=== PATIENT | male | born 1995 | race Caucasian/White ===

== ENCOUNTER 2017-12-07 16:10 | Emergency (ER) | payer MEDICAID ==
[~2017-12-07] VITALS: Ht 172.7 cm; Wt 55.2 kg
[2017-12-07 17:53] VITALS: BP 117/83
== END 2017-12-07 17:55 | disposition home or self-care (01) ==
LOC: ED 17:05
DX: R07.81 Pleurodynia (principal); M72.2 Plantar fascial fibromatosis; B35.3 Tinea pedis; R07.89 Other chest pain; F17.200 Nicotine dependence, unspecified, uncomplicated
CPT/HCPCS: 71046; 99284

== ENCOUNTER 2017-12-17 22:22 | Emergency (ER) | payer MEDICAID ==
[~2017-12-17] VITALS: Ht 170.2 cm; Wt 54.6 kg
[2017-12-17 22:25] VITALS: BP 105/67
[2017-12-17] MEDS ORDERED: KETOROLAC 30 MG/1 ML ONE (22:59)
[2017-12-17] MEDS ORDERED: KETOROLAC 30 MG/1 ML IM ONE (23:00)
== END 2017-12-17 23:26 | disposition home or self-care (01) ==
LOC: ED 22:36
DX: K04.7 Periapical abscess without sinus (principal); K02.9 Dental caries, unspecified
CPT/HCPCS: 96372; 99283; J1885

== ENCOUNTER 2017-12-31 01:32 | Emergency (ER) | payer MEDICAID ==
[~2017-12-31] VITALS: Ht 172.7 cm; Wt 58.2 kg
[2017-12-31 01:35] VITALS: BP 120/54
[2017-12-31] MEDS ORDERED: DIPH,PERTUSS(ACELL),TET VAC/PF 0.5 ML IM-VACC ONE ×2 (02:00→02:29)
== END 2017-12-31 02:43 | disposition home or self-care (01) ==
LOC: ED 02:35
DX: S60.222A Contusion of left hand, initial encounter (principal); S20.311A Abrasion of right front wall of thorax, initial encounter; S40.811A Abrasion of right upper arm, initial encounter; F17.200 Nicotine dependence, unspecified, uncomplicated; V87.8XXA Person injured in other specified noncollision transport accidents involving motor vehicle (traffic), initial encounter; Y93.89 Activity, other specified; Y92.410 Unspecified street and highway as the place of occurrence of the external cause; Y99.8 Other external cause status
CPT/HCPCS: 90471; 90715

== ENCOUNTER 2018-01-26 22:31 | Emergency (ER) | payer MEDICAID ==
[~2018-01-26] VITALS: Ht 170.2 cm; Wt 60.0 kg
[2018-01-26 22:33] VITALS: BP 129/90
== END 2018-01-26 23:07 | disposition home or self-care (01) ==
LOC: ED 22:58
DX: K08.89 Other specified disorders of teeth and supporting structures (principal); F17.210 Nicotine dependence, cigarettes, uncomplicated
CPT/HCPCS: 99283

== ENCOUNTER 2018-01-28 23:49 | Emergency (ER) | payer MEDICAID ==
[~2018-01-28] VITALS: Ht 170.2 cm; Wt 58.6 kg
[2018-01-28 23:50] VITALS: BP 133/89
[2018-01-29] MEDS ORDERED: HYDROcodone/APAP 5/325 TABLET PO STA (00:10)
[2018-01-29] MEDS ORDERED: LIDOCAINE 1%-EPI 1:100K, 30ML ONE (00:17)
[2018-01-29] MEDS ORDERED: HYDROcodone/APAP 5/325 TABLET ONE (00:28)
[2018-01-29] MEDS ORDERED: LIDOCAINE 1%-EPI 1:100K, 20ML SQ ONE (00:30)
== END 2018-01-29 02:30 | disposition home or self-care (01) ==
LOC: ED 01-29 00:03
DX: K04.7 Periapical abscess without sinus (principal); F17.200 Nicotine dependence, unspecified, uncomplicated
CPT/HCPCS: 41800; 99284

== ENCOUNTER 2018-05-21 14:29 | Emergency (ER) | payer MEDICAID ==
[~2018-05-21] VITALS: Ht 172.7 cm; Wt 61.1 kg
--- NOTE | 2018-05-21 15:49 | NUR ---
Karen CHU, at bedside to evaluate pt.
[2018-05-21 17:10] VITALS: BP 111/66
--- NOTE | 2018-05-21 17:11 | NUR ---
Patient/Caregiver given discharge instructions and they have confirmed that they understand the instructions. Patient ambulatory with steady gait.
== END 2018-05-21 17:12 | disposition home or self-care (01) ==
LOC: ED 16:28
DX: S06.0X9A Concussion with loss of consciousness of unspecified duration, initial encounter (principal); F10.129 Alcohol abuse with intoxication, unspecified; F17.210 Nicotine dependence, cigarettes, uncomplicated; M79.652 Pain in left thigh; R51 Headache; Y04.8XXA Assault by other bodily force, initial encounter; Y93.89 Activity, other specified; Y92.410 Unspecified street and highway as the place of occurrence of the external cause; Y99.8 Other external cause status
CPT/HCPCS: 70450; 99284

== ENCOUNTER 2018-06-20 01:21 | Emergency (ER) | payer MEDICAID ==
[~2018-06-20] VITALS: Ht 172.7 cm; Wt 59.4 kg
[2018-06-20 01:29] VITALS: BP 111/76
[2018-06-20] MEDS ORDERED: ONDANSETRON ODT 4 MG ONE (01:48)
[2018-06-20] MEDS ORDERED: MAALOX/HYOSCYAMINE/LIDOCAINE 45 ML BTL ONE (01:48)
[2018-06-20] MEDS ORDERED: MAALOX/HYOSCYAMINE/LIDOCAINE 45 ML BTL PO ONE (02:00)
[2018-06-20] MEDS ORDERED: ONDANSETRON ODT 4 MG PO ONE (02:00)
== END 2018-06-20 02:14 | disposition home or self-care (01) ==
LOC: ED 01:40
DX: K29.20 Alcoholic gastritis without bleeding (principal); F10.120 Alcohol abuse with intoxication, uncomplicated; F17.200 Nicotine dependence, unspecified, uncomplicated
CPT/HCPCS: 99281

== ENCOUNTER 2018-07-05 22:12 | Emergency (ER) | payer MEDICAID ==
--- NOTE | 2018-07-05 22:40 | NUR ---
pt called to room from lobby
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
--- NOTE | 2018-07-05 23:20 | NUR ---
PT REPORTS NO FURTHER INCREASE IN PAIN. PT HAS CTA ON ALL LUNG MORA.
[2018-07-06 00:48] VITALS: BP 118/76
== END 2018-07-06 00:58 | disposition home or self-care (01) ==
LOC: ED 23:59
DX: R07.89 Other chest pain (principal); Y08.89XA Assault by other specified means, initial encounter; Y93.89 Activity, other specified; Y99.8 Other external cause status; Y92.410 Unspecified street and highway as the place of occurrence of the external cause
CPT/HCPCS: 71046; 93005; 99283

== ENCOUNTER 2018-09-08 14:53 | Emergency (ER) | payer MEDICAID ==
[~2018-09-08] VITALS: Ht 172.7 cm; Wt 55.5 kg
[2018-09-08 15:06] VITALS: BP 113/74
[2018-09-08] MEDS ORDERED: DIPHENHYDRAMINE 25 MG CAPSULE ONE (15:29)
[2018-09-08] MEDS ORDERED: FAMOTIDINE 20 MG TABLET ONE (15:29)
[2018-09-08] MEDS ORDERED: DIPHENHYDRAMINE 25 MG CAPSULE PO ONE (15:30)
[2018-09-08] MEDS ORDERED: FAMOTIDINE 20 MG TABLET PO ONE (15:30)
== END 2018-09-08 16:09 | disposition home or self-care (01) ==
LOC: ED 15:40
DX: T78.40XA Allergy, unspecified, initial encounter (principal); R21 Rash and other nonspecific skin eruption; F17.200 Nicotine dependence, unspecified, uncomplicated
CPT/HCPCS: 99284; J7512; Q0163

== ENCOUNTER 2018-10-07 21:33 | Emergency (ER) | payer MEDICAID ==
[~2018-10-07] VITALS: Ht 170.2 cm; Wt 60.0 kg
[2018-10-07 22:31] VITALS: BP 119/74
--- NOTE | 2018-10-07 22:32 | NUR ---
UPON GIVING PT DC INSTRUCTIONS PT REQUESTING TO SLEEP UNTIL HIS GF GETS OFF WORK. PT INFORMED HE IS BEING DISCHARGED BUT IS WELCOME TO WAIT IN THE LOBBY UNTIL SHE ARRIVES. PT AGREEABLE TO THIS. PT DENIE FURTHER NEEDS. PT ASSISTED WITH GETTING DRESSED.
== END 2018-10-07 22:45 | disposition home or self-care (01) ==
LOC: ED 22:20
DX: S43.101A Unspecified dislocation of right acromioclavicular joint, initial encounter (principal); M25.511 Pain in right shoulder; V00.131A Fall from skateboard, initial encounter; Y93.51 Activity, roller skating (inline) and skateboarding; Y92.830 Public park as the place of occurrence of the external cause; Y99.8 Other external cause status
CPT/HCPCS: 29240; 99283

== ENCOUNTER 2018-10-14 13:59 | Emergency (ER) | payer MEDICAID ==
[~2018-10-14] VITALS: Ht 172.7 cm; Wt 56.7 kg
[2018-10-14 14:17] VITALS: BP 117/70
== END 2018-10-14 14:58 | disposition home or self-care (01) ==
LOC: ED 14:42
DX: S43.101A Unspecified dislocation of right acromioclavicular joint, initial encounter (principal); V00.131A Fall from skateboard, initial encounter; Y93.51 Activity, roller skating (inline) and skateboarding; Y92.410 Unspecified street and highway as the place of occurrence of the external cause; Y99.8 Other external cause status
CPT/HCPCS: 99282

== ENCOUNTER 2019-05-22 03:45 | Emergency (ER) | payer MEDICAID ==
[~2019-05-22] VITALS: Ht 170.2 cm; Wt 65.0 kg
[2019-05-22 03:49] VITALS: BP 107/66
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
--- NOTE | 2019-05-22 05:06 | NUR ---
PT ASLEEP IN [facility] AT THIS TIME; NADN. CALL LIGHT WITHIN REACH. PT OXYGEN SATURATION 97% ON ROOM AIR.
--- NOTE | 2019-05-22 06:56 | NUR ---
REPORT OF PT TO SULMA PRYOR AND ALL QUESTIONS ANSWERED.
--- NOTE | 2019-05-22 07:30 | NUR ---
ASSUMED CARE AFTER RECEIVING REPORT FROM DUSTY OZUNA. PT AWAKE AND ALERT. AMBULATED TO BATHROOM, STEADY GAIT. PROVIDED DISCHARGE AND AMBULATED TO DISCHARGE WINDOW. PT HOMELESS AND VOUCHER GIVEN TO AREA THAT HE STAYS
== END 2019-05-22 07:33 | disposition home or self-care (01) ==
LOC: MERGE 07:27 → ED 07:27
DX: F10.120 Alcohol abuse with intoxication, uncomplicated (principal); Y90.9 Presence of alcohol in blood, level not specified
CPT/HCPCS: 99283

== ENCOUNTER 2019-06-21 19:17 | Emergency (ER) | payer MEDICAID ==
[~2019-06-21] VITALS: Ht 172.7 cm; Wt 60.3 kg
--- NOTE | 2019-06-21 19:42 | NUR ---
NO ANSWER WHEN THIS PT WAS CALLED FOR TRIAGE.
[2019-06-21 19:47] VITALS: BP 121/75
--- NOTE | 2019-06-21 20:54 | NUR ---
PT HERE FOR LOWER RIGHT DENTAL PAIN. PT GIVEN ABX AND PAIN CONTROL MED. PT TO SCHEDUEL FOLLOW UP WITH DENTIST. Patient/Caregiver given discharge instructions and they have confirmed that they understand the instructions. Patient ambulatory with steady gait.
== END 2019-06-21 20:57 | disposition home or self-care (01) ==
LOC: ED 20:40
DX: K08.89 Other specified disorders of teeth and supporting structures (principal)
CPT/HCPCS: 99283

== ENCOUNTER 2019-06-22 07:42 | Emergency (ER) | payer MEDICAID ==
[~2019-06-22] VITALS: Ht 172.7 cm; Wt 58.8 kg
[2019-06-22 07:44] VITALS: BP 124/88
== END 2019-06-22 08:08 | disposition home or self-care (01) ==
LOC: ED 08:03
DX: K02.9 Dental caries, unspecified (principal); F17.210 Nicotine dependence, cigarettes, uncomplicated
CPT/HCPCS: 99283

== ENCOUNTER 2019-11-14 23:02 | Emergency (ER) | payer MEDICAID ==
[~2019-11-14] VITALS: Ht 170.2 cm; Wt 57.0 kg
[2019-11-14] MEDS ORDERED: ONDANSETRON 2MG/ML, 2ML ONE (23:46)
[2019-11-14] MEDS ORDERED: ACETAMINOPHEN 500 MG TABLET ONE (23:47)
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
[2019-11-15] MEDS ORDERED: SODIUM CHLORIDE 0.9% 1,000ML IVBOLUS ONE
[2019-11-15] MEDS ORDERED: ACETAMINOPHEN 500 MG TABLET PO ONE
[2019-11-15] MEDS ORDERED: ONDANSETRON 2MG/ML, 2ML IVPush ONE
[2019-11-15 00:01] LABS: BASOPHILS # (AUTO) 0.01 x10^3/uL (0-0.1); BASOPHILS % (AUTO) 0 % (0-1); EOSINOPHILS % (AUTO) 1 % (1-7); LYMPHOCYTES # (AUTO) 1.92 x10^3/uL (1-3.4); LYMPHOCYTES % (AUTO) 27 % (22-44); MD NO; MEAN CORPUSCULAR HEMOGLOBIN 30.7 pg (27.5-34.5); MEAN CORPUSCULAR HGB CONC 33.9 g/dL (33.2-36.2); MEAN CORPUSCULAR VOLUME 90.4 fL (81-97); MEAN PLATELET VOLUME 7.1 fL (7.4-10.4); MONOCYTES # (AUTO) 0.42 x10^3/uL (0.2-0.8); MONOCYTES % (AUTO) 6 % (2-9); NEUTROPHILS # (AUTO) 4.68 x10^3/uL (1.8-6.8); NEUTROPHILS % (AUTO) 66 % (42-75); PLATELET COUNT 313 x10^3/uL (130-400); RED CELL DISTRIBUTION WIDTH 12.3 % (9.4-14.8)
[2019-11-15 00:13] LABS: ALANINE AMINOTRANSFERASE 18 U/L (12-78); ALBUMIN 3.6 g/dL (3.4-5.0); ANION GAP 5 mmol/L (5-15); CALCIUM 8.6 mg/dL (8.5-10.1); CHLORIDE 108 mmol/L (98-107); CREATININE 1.23 mg/dL (0.7-1.3)
[2019-11-15 00:15] LABS: ALKALINE PHOSPHATASE 71 U/L (45-117); BILIRUBIN,TOTAL 0.6 mg/dL (0.2-1.0); TOTAL PROTEIN 6.3 g/dL (6.4-8.2)
--- NOTE | 2019-11-15 00:25 | NUR ---
PT RESTING ON GURNEY, GIVEN WARM BLANKETS FOR COMFORT, NAD, VSS, WCTM. WAITING FOR TEST REUSLTS.
--- NOTE | 2019-11-15 00:51 | NUR ---
BREAK RN FOR PRIMARY LIANA. RECEIVED BEDSIDE REPORT. SB ON MONITOR, RATE 50-60, BP HYPOTENSIVE, DR. STEPHENS AWARE, NO NEW ORDERS RECEIVED. WARM BLANKET PROVIDED FOR COMFORT. DENIES ANY PAIN AND NEED TO USE RESTROOM "MY INSIDES FEEL BETTER." CALL LIGHT IN REACH. FALL PRECAUTIONS IN PLACE
--- NOTE | 2019-11-15 01:23 | NUR ---
BEDSIDE REPORT AND TRANSFER OF CARE BACK TO PRIMARY RN LIANA AT THIS TIME
--- NOTE | 2019-11-15 02:30 | NUR ---
LATE ENTRY D/T PT CARE: PT ROAD TESTED BY RN, PT HAS SMOOTH AND STEADY GAIT. ANABELL GRIDER. REUBEN.
--- NOTE | 2019-11-15 03:03 | NUR ---
PatienT given discharge instructions and they have confirmed that they understand the instructions. Patient ambulatory with steady gait. DENIES ADDITIONAL NEEDS OR QUESTIONS. VSS. NAD. ALL BELONGINGS WITH PT UPON DISCHARGE.
[2019-11-15 03:04] VITALS: BP 92/53
== END 2019-11-15 03:13 | disposition home or self-care (01) ==
LOC: ED 11-15 03:10
DX: R10.84 Generalized abdominal pain (principal); F10.10 Alcohol abuse, uncomplicated; F15.10 Other stimulant abuse, uncomplicated; F11.10 Opioid abuse, uncomplicated; R19.7 Diarrhea, unspecified; R00.1 Bradycardia, unspecified; R11.0 Nausea; I45.10 Unspecified right bundle-branch block; F17.210 Nicotine dependence, cigarettes, uncomplicated; Y90.0 Blood alcohol level of less than 20 mg/100 ml
CPT/HCPCS: 36415; 71045; 80053; 83690; 85025; 93005; 96361; 96374; 99285; 99406; J2405; J7030

== ENCOUNTER 2019-12-15 20:48 | Emergency (ER) | payer MEDICAID ==
[~2019-12-15] VITALS: Ht 167.6 cm; Wt 54.7 kg
[2019-12-15 22:39] VITALS: BP 109/84
--- NOTE | 2019-12-15 22:42 | NUR ---
VITALS RECHECKED, PT AWAITING ROOM AVAILABILITY
--- NOTE | 2019-12-15 22:44 | NUR ---
NO ANSWER WHEN CALLED FOR ROOM
--- NOTE | 2019-12-15 23:06 | NUR ---
AMBULATORY TO ROOM
--- NOTE | 2019-12-15 23:26 | NUR ---
PT GIVEN CLEAN SOCKS AT THIS TIME, CAB VOUCHER IF HE WOULD LIKE, COMM[employer]ITY [employer] SHEET
== END 2019-12-15 23:36 | disposition home or self-care (01) ==
LOC: ED 23:30
DX: S86.912A Strain of unspecified muscle(s) and tendon(s) at lower leg level, left leg, initial encounter (principal); B35.3 Tinea pedis; F17.210 Nicotine dependence, cigarettes, uncomplicated; X58.XXXA Exposure to other specified factors, initial encounter; Y93.89 Activity, other specified; Y92.89 Other specified places as the place of occurrence of the external cause; Y99.8 Other external cause status
CPT/HCPCS: 99406

== ENCOUNTER 2019-12-28 00:42 | Emergency (ER) | payer MEDICAID ==
[~2019-12-28] VITALS: Ht 175.3 cm; Wt 54.0 kg
[2019-12-28 00:44] VITALS: BP 132/81
[2019-12-28 01:11] LABS: BASOPHILS % (AUTO) 0 % (0-1); EOSINOPHILS % (AUTO) 1 % (1-7); LYMPHOCYTES % (AUTO) 23 % (22-44); MEAN CORPUSCULAR HEMOGLOBIN 30.7 pg (27.5-34.5); MEAN CORPUSCULAR HGB CONC 34.9 g/dL (33.2-36.2); MEAN PLATELET VOLUME 7.5 fL (7.4-10.4); MONOCYTES % (AUTO) 6 % (2-9); NEUTROPHILS % (AUTO) 71 % (42-75); PLATELET COUNT 426 x10^3/uL (130-400); RED BLOOD COUNT 5.84 x10^6/uL (4.38-5.82); RED CELL DISTRIBUTION WIDTH 12.9 % (9.4-14.8)
[2019-12-28 01:17] LABS: ALANINE AMINOTRANSFERASE 25 U/L (12-78); ALBUMIN 4.4 g/dL (3.4-5.0); ANION GAP 6 mmol/L (5-15); CALCIUM 9.6 mg/dL (8.5-10.1); CHLORIDE 101 mmol/L (98-107); MD NO
[2019-12-28 01:18] LABS: SALICYLATE LEVEL < 1.7 mg/dL (2.8-20.0)
[2019-12-28 01:21] LABS: ALKALINE PHOSPHATASE 94 U/L (45-117); BILIRUBIN,TOTAL 0.5 mg/dL (0.2-1.0)
--- NOTE | 2019-12-28 03:10 | NUR ---
24 year old male to ED for psychiatric evaluation. When asked what brings him in, he states "just trying to relax and slowly." When asked how he's feeling, he points at his head and says "snakes." He denies suicidal ideation or homicidal ideations.
--- NOTE | 2019-12-28 03:56 | NUR ---
Patient given discharge paperwork. He stated "Im not leaving." He immediately closed his eyes and would not reply to further questions. Hospital security at bedside to escort the patient out of ED.
== END 2019-12-28 04:00 | disposition home or self-care (01) ==
LOC: ED 03:30
DX: F15.90 Other stimulant use, unspecified, uncomplicated (principal); F17.200 Nicotine dependence, unspecified, uncomplicated
CPT/HCPCS: 36415; 80053; 80307; 83690; 85025; 99283

== ENCOUNTER 2019-12-29 21:23 | Emergency (ER) | payer MEDICAID ==
--- NOTE | 2019-12-29 21:26 | NUR ---
NOT IN LOBBY FOR TRIAGE
--- NOTE | 2019-12-29 21:39 | NUR ---
PT NOT IN LOBBY FOR TRIAGE AT THIS TIME
== END 2019-12-29 21:46 | disposition left against medical advice (07) ==
LOC: ED 21:33
DX: Z53.21 Procedure and treatment not carried out due to patient leaving prior to being seen by health care provider (principal)

== ENCOUNTER 2019-12-29 23:06 | Emergency (ER) | payer MEDICAID ==
[~2019-12-29] VITALS: Ht 175.3 cm; Wt 55.0 kg
[2019-12-29 23:16] VITALS: BP 123/85
--- NOTE | 2019-12-29 23:52 | NUR ---
Patient/Caregiver given discharge instructions and they have confirmed that they understand the instructions. Patient ambulatory with steady gait.
== END 2019-12-29 23:53 | disposition home or self-care (01) ==
LOC: ED 23:36
DX: F15.159 Other stimulant abuse with stimulant-induced psychotic disorder, unspecified (principal)
CPT/HCPCS: 99281

== ENCOUNTER 2020-01-17 22:37 | Emergency (ER) | payer MEDICAID ==
[~2020-01-17] VITALS: Ht 175.3 cm; Wt 63.0 kg
--- NOTE | 2020-01-18 00:05 | NUR ---
A&o x4, answering questions appropriately. Speaking in clear, full sentences. States atraumatic, nonradiating mid umbilicus pain x "a few days" with increased frequency of small, loose stools. Pt also states he is lactose intolerant and has been drinking milk frequently d/t limited options at rehab facility for meth. Pt states he has not used meth x1 week. Admits to intermittent marijuana usage, last use today. Abd soft, flat, nondistended. Denies fever/chills.
[2020-01-18 01:42] VITALS: BP 101/60
== END 2020-01-18 01:44 | disposition home or self-care (01) ==
LOC: ED 23:13
DX: F20.89 Other schizophrenia (principal); F10.20 Alcohol dependence, uncomplicated; F12.20 Cannabis dependence, uncomplicated; Y90.0 Blood alcohol level of less than 20 mg/100 ml; Z72.9 Problem related to lifestyle, unspecified
CPT/HCPCS: 99281

== ENCOUNTER 2020-01-18 19:26 | Emergency (ER) | payer MEDICAID ==
[~2020-01-18] VITALS: Ht 172.7 cm; Wt 64.4 kg
--- NOTE | 2020-01-18 19:48 | NUR ---
assessment made. chart up for MD to see.
--- NOTE | 2020-01-18 19:54 | NUR ---
ERP at bedside.
--- NOTE | 2020-01-18 20:05 | NUR ---
blood drawn by calibration laboratory technician.
[2020-01-18 20:27] LABS: ALANINE AMINOTRANSFERASE 225 U/L (12-78); ALBUMIN 4.1 g/dL (3.4-5.0); ANION GAP 5 mmol/L (5-15); CALCIUM 8.8 mg/dL (8.5-10.1); CHLORIDE 104 mmol/L (98-107); CREATININE 1.09 mg/dL (0.7-1.3)
[2020-01-18 20:32] LABS: BASOPHILS % (AUTO) 1 % (0-1); EOSINOPHILS % (AUTO) 1 % (1-7); LYMPHOCYTES % (AUTO) 20 % (22-44); MEAN CORPUSCULAR HEMOGLOBIN 30.6 pg (27.5-34.5); MEAN CORPUSCULAR HGB CONC 33.9 g/dL (33.2-36.2); MEAN PLATELET VOLUME 7.9 fL (7.4-10.4); MONOCYTES % (AUTO) 8 % (2-9); NEUTROPHILS % (AUTO) 71 % (42-75); PLATELET COUNT 302 x10^3/uL (130-400); RED BLOOD COUNT 5.11 x10^6/uL (4.38-5.82); RED CELL DISTRIBUTION WIDTH 13.3 % (9.4-14.8)
[2020-01-18 20:33] LABS: MD NO
[2020-01-18 20:34] LABS: SALICYLATE LEVEL < 1.7 mg/dL (2.8-20.0)
[2020-01-18 20:37] LABS: ALKALINE PHOSPHATASE 96 U/L (45-117); BILIRUBIN,TOTAL 0.4 mg/dL (0.2-1.0); TOTAL PROTEIN 7.7 g/dL (6.4-8.2)
[2020-01-18 21:24] VITALS: BP 108/64
--- NOTE | 2020-01-18 21:24 | NUR ---
PT TO ED, STATES "I WANNA HURT MYSELF, I CUT MYSELF A FEW WEEKS AGO, SEE?" PT HAS NO RECENT INJURY OR SELF HARM. STATES "LIFE HAS BEEN HARD LATELY". PT RESTING ON [facility] SENT TO LAB. TELEPSYCH COMPLETED, AWAITING PROVIDER REPORT.
[2020-01-18 21:44] LABS: AMPHETAMINE SCREEN, URINE Negative (Negative); BARBITURATE SCREEN, URINE Negative (Negative); BENZODIAZEPINE SCREEN, URINE Negative (Negative); CANNABINOID SCREEN, URINE Positive (Negative); COCAINE SCREEN, URINE Negative (Negative); METHADONE SCREEN, URINE Negative (Negative); OPIATE SCREEN, URINE Negative (Negative)
[2020-01-18 21:45] LABS: MICROSCOPIC NOT IND
--- NOTE | 2020-01-18 22:30 | NUR ---
BELONGINGS SECURED IN LOCKER IN 2OF2 BAGS. PT OFFERED FOOD AND WATER, DENIES NEEDS AT THIS TIME. ROOM SECURED, SITTER IN HALLWAY WITHIN LINE OF SIGHT.
--- NOTE | 2020-01-18 22:43 | NUR ---
PT RESTING ON MANUEL PATRICIO IN HALLWAY WITHIN LINE OF SIGHT, ROOM SECURED.
--- NOTE | 2020-01-18 22:46 | NUR ---
Throughput: Packet faxed to [facility], [facility], [facility].
--- NOTE | 2020-01-19 00:20 | NUR ---
REPORT CALLED TO SULMA ARROYO AT [facility].
--- NOTE | 2020-01-19 00:31 | NUR ---
PT RESTING ON GURNEY WITH EYES CLOSED, RESPIRATIONS EVEN AND NONLABORED. SITTER IN HALLWAY WITHIN LINE OF SIGHT, ROOM SECURED.
== END 2020-01-19 01:22 | disposition home or self-care (01) ==
LOC: ED 19:53
DX: F33.9 Major depressive disorder, recurrent, unspecified (principal); F29 Unspecified psychosis not due to a substance or known physiological condition; R45.851 Suicidal ideations
CPT/HCPCS: 36415; 80053; 80307; 81003; 84443; 85025; 99283

== ENCOUNTER 2020-01-25 18:12 | Emergency (ER) | payer MEDICAID ==
[~2020-01-25] VITALS: Ht 172.7 cm; Wt 64.0 kg
[2020-01-25 18:23] VITALS: BP 109/73
--- NOTE | 2020-01-25 22:00 | NUR ---
PT NIL X1
== END 2020-01-25 23:40 | disposition home or self-care (01) ==
LOC: ED 23:00
DX: F41.1 Generalized anxiety disorder (principal); Z76.0 Encounter for issue of repeat prescription
CPT/HCPCS: 99281

== ENCOUNTER 2020-01-29 18:29 | Emergency (ER) | payer MEDICAID ==
[~2020-01-29] VITALS: Ht 172.7 cm; Wt 64.7 kg
[2020-01-29 19:09] VITALS: BP 99/71
== END 2020-01-29 19:41 | disposition home or self-care (01) ==
LOC: ED 19:30
DX: F31.9 Bipolar disorder, unspecified (principal); F41.1 Generalized anxiety disorder; Z59.0 Homelessness; R94.31 Abnormal electrocardiogram [ECG] [EKG]
CPT/HCPCS: 93005; 99284

== ENCOUNTER 2020-02-13 19:15 | Emergency (ER) | payer MEDICAID ==
[~2020-02-13] VITALS: Ht 175.3 cm; Wt 62.5 kg
[2020-02-13 19:17] VITALS: BP 112/69
--- NOTE | 2020-02-13 19:55 | NUR ---
DC EDUCATION PROVIDED, PT DEMONSTRATES UNDERSTANDING. PT AMBULATED STEADILY TO DC WITH RN
== END 2020-02-13 19:59 | disposition home or self-care (01) ==
LOC: ED 19:57
DX: B86 Scabies (principal); F17.200 Nicotine dependence, unspecified, uncomplicated
CPT/HCPCS: 99283

== ENCOUNTER 2020-02-23 16:02 | Emergency (ER) | payer MEDICAID ==
[~2020-02-23] VITALS: Ht 175.3 cm; Wt 64.5 kg
[2020-02-23 16:11] VITALS: BP 111/77
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
--- NOTE | 2020-02-23 20:01 | NUR ---
Patient given discharge instructions and they have confirmed that they understand the instructions. Patient stable and ambulatory with steady gait from ED.
== END 2020-02-23 20:02 | disposition home or self-care (01) ==
LOC: ED 19:45
DX: U07.1 COVID-19 (principal); J00 Acute nasopharyngitis [common cold]; R09.81 Nasal congestion; F32.9 Major depressive disorder, single episode, unspecified; R44.1 Visual hallucinations
CPT/HCPCS: 87635; 99283

== ENCOUNTER 2020-10-11 23:32 | Emergency (ER) | payer MEDICAID ==
[~2020-10-11] VITALS: Ht 170.2 cm; Wt 65.0 kg
[2020-10-11 23:34] VITALS: BP 126/66
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
[2020-10-11] MEDS ORDERED: DIPH,PERTUSS(ACELL),TET VAC/PF 0.5 ML IM-VACC ONE (23:59)
[2020-10-11] MEDS ORDERED: IBUPROFEN 600 MG TABLET ONE (23:59)
[2020-10-12] MEDS ORDERED: DIPH,PERTUSS(ACELL),TET VAC/PF 0.5 ML IM-VACC ONE
[2020-10-12] MEDS ORDERED: IBUPROFEN 600 MG TABLET PO ONE
--- NOTE | 2020-10-12 00:26 | NUR ---
Break RN: medicated patient per mar. Awaiting CT results.
== END 2020-10-12 00:49 | disposition home or self-care (01) ==
LOC: ED 23:50
DX: S00.11XA Contusion of right eyelid and periocular area, initial encounter (principal); F17.210 Nicotine dependence, cigarettes, uncomplicated; Y04.0XXA Assault by unarmed brawl or fight, initial encounter; Y93.89 Activity, other specified; Y92.410 Unspecified street and highway as the place of occurrence of the external cause; Y99.8 Other external cause status
CPT/HCPCS: 70450; 70486; 90471; 90715; 99285; 99406

== ENCOUNTER 2020-10-27 17:20 | Emergency (ER) | payer MEDICAID ==
--- NOTE | 2020-10-27 18:25 | NUR ---
PATIENT NOT IN LOBBY WHEN CALLED.
--- NOTE | 2020-10-27 18:40 | NUR ---
PATIENT NOT IN LOBBY WHEN CALLED X2.
--- NOTE | 2020-10-27 18:55 | NUR ---
PATIENT NOT IN LOBBBY WHEN CALLED X3.
== END 2020-10-27 19:14 | disposition left against medical advice (07) ==
LOC: ED 18:00
DX: J02.9 Acute pharyngitis, unspecified (principal); Z53.21 Procedure and treatment not carried out due to patient leaving prior to being seen by health care provider

== ENCOUNTER 2020-11-01 13:41 | Emergency (ER) | payer MEDICAID ==
[~2020-11-01] VITALS: Ht 175.3 cm; Wt 61.4 kg
--- NOTE | 2020-11-01 15:01 | NUR ---
LICENSED REAL ESTATE BROKER: PT TO ROOM FROM [facility]
--- NOTE | 2020-11-01 15:11 | NUR ---
CC OF "IT FEELS LIKE THERES SOMETHING STUCK IN MY THROAT" X 3 DAYS. PT ASKING IF HE SHOULD GIVE HIMSELF [place] MANEUVER. PT SPEAKING IN FULL SENTENCES, DENIES SOB AND RESP EVEN AND UNLABORED. ADMITS TO USING METH AND MARIJUANA.
[2020-11-01] MEDS ORDERED: IBUPROFEN 600 MG TABLET ONE (17:18)
[2020-11-01 17:22] VITALS: BP 116/72
[2020-11-01] MEDS ORDERED: IBUPROFEN 600 MG TABLET PO ONE (17:30)
== END 2020-11-01 17:24 | disposition home or self-care (01) ==
LOC: ED 13:51
DX: J02.9 Acute pharyngitis, unspecified (principal); Z20.822 Contact with and (suspected) exposure to COVID-19; R05 Cough; R11.2 Nausea with vomiting, unspecified; F17.200 Nicotine dependence, unspecified, uncomplicated
CPT/HCPCS: 99283; U0003; U0005

== ENCOUNTER 2020-11-04 08:22 | Emergency (ER) | payer MEDICAID ==
[~2020-11-04] VITALS: Ht 175.3 cm; Wt 60.1 kg
[2020-11-04 08:38] VITALS: BP 98/75
--- NOTE | 2020-11-04 09:32 | NUR ---
PATIENT TO ROOM FROM LOBBY
== END 2020-11-04 10:56 | disposition home or self-care (01) ==
LOC: ED 08:32
DX: H60.502 Unspecified acute noninfective otitis externa, left ear (principal); F17.200 Nicotine dependence, unspecified, uncomplicated
CPT/HCPCS: 99283

== ENCOUNTER 2020-11-21 10:12 | Emergency (ER) | payer MEDICAID ==
[~2020-11-21] VITALS: Ht 175.3 cm; Wt 61.0 kg
--- NOTE | 2020-11-21 11:36 | NUR ---
SHORTHAND TEACHER: PT TO ROOM FROM [facility]
--- NOTE | 2020-11-21 12:15 | NUR ---
PT C/O INDENT TO LEFT CHEST. PT DENIES TRAUMA OR FALLS. PT DENIES PAIN AT THIS TIME OR SOB.
[2020-11-21 12:57] VITALS: BP 95/61
--- NOTE | 2020-11-21 12:58 | NUR ---
PT REC'VD DISCHARGE INSTRUCTIONS AND EDUCATION. PT HAD NO FURTHER QUESTIONS.
--- NOTE | 2020-11-21 13:03 | NUR ---
PT AMBULATED TO ID AREA, STEADY GAIT.
== END 2020-11-21 13:21 | disposition home or self-care (01) ==
LOC: ED 10:18
DX: R07.89 Other chest pain (principal); F20.9 Schizophrenia, unspecified
CPT/HCPCS: 71045; 99283